=== PATIENT | female | born 1995 | race Two or more races ===

== ENCOUNTER 2018-04-04 00:51 | Emergency (ER) | payer MEDICAID ==
[~2018-04-04] VITALS: Ht 165.1 cm; Wt 74.8 kg
[~2018-04-04 00:51] MED LIST: KEFLEX500 MG ORAL; NKM
[2018-04-04 01:00] VITALS: BP 114/78
[2018-04-04] MEDS ORDERED: Ketorolac 30mg Inj IV ONE (01:15)
--- NOTE | 2018-04-04 01:19 | Emergency Room Report ---
History of Present Illness General Chief Complaint: Female Urogenital Problems Source: Patient Present Illness HPI This is a 22-year-old female with no past medical history. She presents with chief complaint of abdominal pain. Has been crampy lower abdominal area for the last 2 weeks but tonight had acute onset of sharp pain and had diarrhea. Also felt nauseous. No fever or chills. No vomiting. Pain is sharp and crampy. Also has some vaginal irritation with urinating. No discharge. Allergies: Coded Allergies: No Known Allergies (Unverified , 05/10/16) Patient History Past Medical History: see triage record, old chart reviewed Past Surgical History: none Pertinent Family History: none Social History: Denies: smoking Last Menstrual Period: 3 weeks ago Now: No Immunizations: other Reviewed Nursing Documentation: PMH: Agreed; PSxH: Agreed Nursing Documentation-PMH Past Medical History: No Stated History Review of Systems Eye: Denies: eye pain, blurred vision ENT: Denies: ear pain, nose congestion, throat swelling Respiratory: Denies: cough, shortness of breath Cardiovascular: Denies: chest pain, palpitations Gastrointestinal: Reports: abdominal pain, diarrhea, nausea; Denies: vomiting Musculoskeletal: Denies: back pain, joint pain Skin: Denies: rash Neurological: Denies: headache, numbness Endocrine: Denies: increased thirst, increased urine Hematologic/Lymphatic: Denies: easy bruising All Other Systems: negative except mentioned in HPI Physical Exam Vital Signs Date Time Temp Pulse Resp B/P (MAP) Pulse Ox O2 Delivery O2 Flow Rate FiO2 04/04/18 00:54 98.2 72 16 114/78 96 Room Air 98.2 vitals normal Sp02 EP Interpretation: reviewed, normal General Appearance: well appearing, no apparent distress, alert Head: normocephalic, atraumatic Eyes: bilateral eye PERRL, bilateral eye EOMI ENT: hearing grossly normal, normal pharynx Neck: full range of motion, supple, no meningismus Respiratory: chest non-tender, lungs clear, normal breath sounds Cardiovascular #1: regular rate, rhythm, no murmur Gastrointestinal: normal bowel sounds, no mass, no organomegaly, no bruit, non- distended, tenderness - mild, lower quadrants Musculoskeletal: back normal, gait/station normal, normal range of motion Psychiatric: mood/affect normal Skin: warm/dry Medical Decision Making Diagnostic Impression: Primary Impression: Ovarian cyst Qualified Codes: N83.209 - Unspecified ovarian cyst, unspecified side ER Course Patient presents with abdominal pain/pelvic pain. She has ovarian cyst on the CT scan which may have ruptured. Pain better now. No evidence of an acute abdomen. No evidence of infection. We'll discharge home. Lab Results Impression labs normal CT/MRI/US Diagnostic Results CT/MRI/US Diagnostic Results : Imaging Test Ordered: CT abdomen and pelvis Impression Read by radiologist. Ovarian cyst Last Vital Signs Date Time Temp Pulse Resp B/P (MAP) Pulse Ox O2 Delivery O2 Flow Rate FiO2 04/04/18 00:54 98.2 72 16 114/78 96 Room Air 98.2 Status: improved Disposition: HOME, SELF-CARE Condition: Stable Scripts Ibuprofen* (MOTRIN*) 600 Mg Tablet 600 MG ORAL THREE TIMES A DAY, #30 TAB 0 Refills Prov: CRISTINA SULTANA M.D. 04/04/18 Additional Instructions: Follow-up your doctor in 7 days. Return if symptom worsen. CRISTINA SULTANA M.D. Apr 04, 2018 01:19
[2018-04-04 01:38] LABS: APPEARANCE,URINE CLEAR; BILIRUBIN, URINE NEGATIVE (NEGATIVE); COLOR,URINE PALE YELLOW; GLUCOSE, URINE (UA) NEGATIVE (NEGATIVE); KETONES,URINE NEGATIVE (NEGATIVE); LEUKOCYTE ESTERASE ,URINE 1+ (NEGATIVE); NITRITE,URINE NEGATIVE (NEGATIVE); PH,URINE 6.5 (4.5-8.0); PROTEIN,URINE NEGATIVE (NEGATIVE); UROBILINOGEN,URINE NORMAL MG/DL (0.0-1.0)
[2018-04-04 01:40] LABS: BASOPHILS % (AUTO) 1.3 % (0.0-2.0); EOSINOPHILS % (AUTO) 3.2 % (0.0-3.0); HEMATOCRIT 42.6 % (37.0-47.0); HEMOGLOBIN 14.2 G/DL (12.0-16.0); LYMPHOCYTES % (AUTO) 35.3 % (20.0-45.0); MEAN CORPUSCULAR VOLUME 89 FL (80-99); NEUTROPHILS % (AUTO) 54.2 % (45.0-75.0); PLATELET COUNT 220 K/UL (150-450); RED BLOOD COUNT 4.79 M/UL (4.20-5.40); RED CELL DISTRIBUTION WIDTH 12.3 % (11.6-14.8); WHITE BLOOD COUNT 7.7 K/UL (4.8-10.8)
[2018-04-04 01:47] LABS: ANION GAP 9 mmol/L (5-15); BLOOD UREA NITROGEN 17 mg/dL (7-18); CALCIUM 9.8 MG/DL (8.5-10.1); CARBON DIOXIDE 26 MMOL/L (21-32); CHLORIDE 103 MMOL/L (98-107); CREATININE 0.8 MG/DL (0.55-1.30); POTASSIUM 3.7 MMOL/L (3.5-5.1); SODIUM 138 MMOL/L (136-145)
[2018-04-04 01:51] LABS: ALANINE AMINOTRANSFERASE 24 U/L (12-78); ALBUMIN 4.2 G/DL (3.4-5.0); ALKALINE PHOSPHATASE 51 U/L (46-116); ASPARTATE AMINO TRANSFERASE 16 U/L (15-37); BILIRUBIN,TOTAL 0.5 MG/DL (0.2-1.0)
[2018-04-04 02:00] VITALS: BP 118/78
[2018-04-04 03:00] VITALS: BP 113/75
[2018-04-04] MEDS ORDERED: IBUPROFEN600 MG ORAL (03:00)
[2018-04-04 03:10] VITALS: BP 113/75
--- NOTE | 2018-04-04 09:28 | Diagnostic Imaging Report ---
Indication: Abdominal pain Technique: Continuous helical transaxial imaging of the abdomen and pelvis was obtained from the lung bases to the pubic symphysis. No intravenous contrast was administered. Coronal 2-D reformats were also obtained. Automatic Exposure Control was utilized. Total Dose length Product (DLP): 763.[address] Dose Index Volume (CTDIvol): 15.23 mGy Comparison: none Findings: The lung bases are clear. Solid organs are limited in evaluation due to lack of contrast. There is no nephrolithiasis or hydronephrosis demonstrated. Moderate fecal retention in the colon demonstrated. There is a moderate amount of free fluid within the pelvis. There is suggestion of a right ovarian mass or cyst possibly hemorrhagic. Further evaluation with ultrasound is recommended. Right ovarian prominence or mass is about 3.3 x 2.6 cm on transaxial images. Current study limited by absence of intravenous contrast material. IMPRESSION: Suspected right ovarian mass or hemorrhagic cyst. Moderate free fluid within the pelvis. Recommend evaluation with pelvic ultrasound. [facility] has communicated the preliminary results to the Emergency Department. Their findings are largely concordant with this report. The CT scanner at [facility] is accredited by the [employer] and the scans are performed using dose optimization techniques as appropriate to a performed exam including Automatic Exposure control.
== END 2018-04-04 03:10 | disposition home or self-care (01) ==
LOC: EMR 01:12
DX: N83.201 Unspecified ovarian cyst, right side (principal)
CPT/HCPCS: 36415; 74176; 80053; 81003; 81025; 83690; 85025; 96374; 96375; 99284; J1885; J2405